=== PATIENT | female | born 1980 ===

== ENCOUNTER 2018-03-05 14:16 | Inpatient (IN) ==
[2018-03-06 08:16] VITALS: BP 125/82
== END 2018-03-06 14:07 | disposition home or self-care (01) | DRG 639 ==
LOC: N.ICU 16:10 → SUATTDRO 16:10
PROVIDERS: ADMIT Internal Medicine; ATTEND Internal Medicine

== ENCOUNTER 2019-03-27 16:38 | Inpatient (IN) ==
[2019-03-27] MEDS ORDERED: ONDANSETRON 4 MG/2 ML VIAL IV PRN (18:46)
[2019-03-27] MEDS ORDERED: DEXTROSE 50% 25 GM/50 ML VIAL IV PRN ×2 (18:46)
[2019-03-27] MEDS ORDERED: GLUCAGON 1 MG VIAL IM PRN (18:46)
[2019-03-27] MEDS ORDERED: ACETAMINOPHEN 325 MG TABLET PO PRN (18:46)
[2019-03-27] MEDS ORDERED: ENOXAPARIN 80 MG/0.8 ML SYRINGE SUBCUT ONE (19:25)
[2019-03-27 19:53] LABS: Basophils % 0.2 % (0.0-0.8); Eosinophils # 0.1 10*3/uL (0.0-0.87); Eosinophils % 1.7 % (0.00-10.9); Hematocrit 26.7 VOL% (35.7-47.0); Hemoglobin 8.9 GM/DL (12.0-16.0); Immature Granulocytes % 0.6 %; Immature Granulocytes Absolute 0.05 #; Lymphocytes % 12.5 % (21.3-54.2); Mean Corpuscular HGB Conc 33.3 GM/DL (32-36); Mean Corpuscular Volume 90.8 FL (87-102); Mean Platelet Volume 9.5 FL (9.6-12.0); Monocytes % 11.8 % (1.7-12.7); Neutrophils % 73.2 % (38.7-73.9); Platelet Count 184 T/CUMM (130-400); Red Blood Count 2.94 MC/CUMM (3.8-5.5); Red Cell Distribution Width 13.1 % (9.3-17.3); White Blood Count 8.2 T/CUMM (4-12)
[2019-03-27 20:07] LABS: Alanine Aminotransferase 9 U/L (13-56); Albumin 2.6 G/DL (3.4-5.0); Alkaline Phosphatase 108 U/L (45-117); Aspartate Amino Transferase 11 U/L (0-37); Bilirubin,Total < 0.39 MG/DL (0.2-1.0); Blood Urea Nitrogen 43 MG/DL (7-18); Calcium 8.4 MG/DL (8.5-10.1); Glucose 126 MG/DL (74-106); Osmolality,Calculated 278.4 MOS/KG (273-304); Total Protein 7.1 G/DL (6.4-8.3)
[2019-03-27 20:15] LABS: Eosinophils 2 % (0-10); Hypochromasia 1+; Lymphocytes 10 % (20-55); Platelet Estimate Adequate; Segmented Neutrophils 78 % (50-85)
[2019-03-27 20:16] LABS: Total Cells Counted 100
[2019-03-27] MEDS: SODIUM CHLORIDE 0.9% 1,000 ML IV SCH (20:20)
[2019-03-27] MEDS ORDERED: SODIUM CHLORIDE 0.9% 500 ML IV ONE (20:54)
[2019-03-27] MEDS: CEFTAROLINE 400 MG in SODIUM CHLORIDE 0.9% 100 ML IV SCH (20:57)
[2019-03-27] MEDS: INSULIN REGULAR 100 UNIT/ML SUBCUT SCH (20:57)
[2019-03-28] MEDS: SODIUM CHLORIDE 0.9% 1,000 ML IV SCH ×4 (01:24→18:20)
[2019-03-28] MEDS ORDERED: SODIUM CHLORIDE 0.9% 500 ML IV ONE (06:11)
[2019-03-28 07:13] LABS: Basophils % 0.3 % (0.0-0.8); Eosinophils # 0.1 10*3/uL (0.0-0.87); Eosinophils % 1.6 % (0.00-10.9); Hematocrit 24.2 VOL% (35.7-47.0); Hemoglobin 8.2 GM/DL (12.0-16.0); Immature Granulocytes % 0.6 %; Immature Granulocytes Absolute 0.04 #; Lymphocytes % 14.9 % (21.3-54.2); Mean Corpuscular HGB Conc 33.9 GM/DL (32-36); Mean Corpuscular Volume 90.6 FL (87-102); Mean Platelet Volume 9.8 FL (9.6-12.0); Monocytes % 12.1 % (1.7-12.7); Neutrophils % 70.5 % (38.7-73.9); Platelet Count 148 T/CUMM (130-400); Red Blood Count 2.67 MC/CUMM (3.8-5.5); White Blood Count 6.9 T/CUMM (4-12)
[2019-03-28 07:32] LABS: Albumin 2.1 G/DL (3.4-5.0); Band Neutrophils 2 % (0-10); Bilirubin,Total 0.9 MG/DL (0.2-1.0); Calcium 7.7 MG/DL (8.5-10.1); Eosinophils 3 % (0-10); Lymphocytes 6 % (20-55); Osmolality,Calculated 288.2 MOS/KG (273-304); Segmented Neutrophils 78 % (50-85); Total Cells Counted 100
[2019-03-28 07:33] LABS: Hypochromasia 1+; Platelet Estimate Normal
[2019-03-28] MEDS ORDERED: ceFAZolin 1,000 MG in SYRINGE 1 EACH IV ONE (07:33)
[2019-03-28] MEDS: CEFTAROLINE 400 MG in SODIUM CHLORIDE 0.9% 100 ML IV SCH ×2 (08:38→21:16)
[2019-03-28] MEDS: INSULIN REGULAR 100 UNIT/ML SUBCUT SCH ×4 (08:42→21:17)
[2019-03-28] MEDS ORDERED: LIDOCAINE 1% 20 ML VIAL ONE (10:07)
[2019-03-28] MEDS ORDERED: BUPIVACAINE MPF 0.25% /EPI 30 ML VIAL ONE (10:07)
[2019-03-28] MEDS ORDERED: HYDROmorphone 2 MG/1 ML VIAL IV ONE (10:32)
[2019-03-28] MEDS ORDERED: HYDROmorphone 2 MG/1 ML VIAL IV PRN (10:32)
[2019-03-28] MEDS ORDERED: HYDROmorphone 2 MG/1 ML VIAL ONE (10:55)
[2019-03-28] MEDS ORDERED: HydrOXYzine PAMOATE 25 MG CAPSULE PO PRN (13:07)
[2019-03-28] MEDS: PANTOPRAZOLE 40 MG TABLET PO SCH (13:30)
[2019-03-28] MEDS: INSULIN LISPRO 100 UNIT/ML SUBCUT SCH (18:15)
[2019-03-28] MEDS: INSULIN GLARGINE 100 UNIT/ML SUBCUT SCH (21:17)
[2019-03-28] MEDS: MOMETASONE 220 MCG/PUFF INHALER 14 DOSE INH SCH (21:17)
[2019-03-29] MEDS: SODIUM CHLORIDE 0.9% 1,000 ML IV SCH ×5 (01:22→20:05)
[2019-03-29 04:24] LABS: Basophils % 0.2 % (0.0-0.8); Eosinophils # 0.1 10*3/uL (0.0-0.87); Eosinophils % 2.7 % (0.00-10.9); Hematocrit 24.9 VOL% (35.7-47.0); Hemoglobin 8.3 GM/DL (12.0-16.0); Immature Granulocytes % 0.6 %; Immature Granulocytes Absolute 0.03 #; Lymphocytes % 19.5 % (21.3-54.2); Mean Corpuscular HGB Conc 33.3 GM/DL (32-36); Mean Corpuscular Volume 90.2 FL (87-102); Mean Platelet Volume 9.6 FL (9.6-12.0); Monocytes % 8.6 % (1.7-12.7); Neutrophils % 68.4 % (38.7-73.9); Platelet Count 159 T/CUMM (130-400); Red Blood Count 2.76 MC/CUMM (3.8-5.5); Red Cell Distribution Width 12.7 % (9.3-17.3); White Blood Count 4.9 T/CUMM (4-12)
[2019-03-29 04:47] LABS: Calcium 7.5 MG/DL (8.5-10.1); Osmolality,Calculated 283.7 MOS/KG (273-304)
[2019-03-29] MEDS: LEVOTHYROXINE 75 MCG TABLET PO SCH (06:43)
[2019-03-29] MEDS: INSULIN LISPRO 100 UNIT/ML SUBCUT SCH ×3 (08:15→17:27)
[2019-03-29] MEDS: INSULIN REGULAR 100 UNIT/ML SUBCUT SCH ×4 (08:15→21:54)
[2019-03-29] MEDS: MULTIVITAMIN (CENTRUM) TABLET PO SCH (08:16)
[2019-03-29] MEDS: MONTELUKAST 10 MG TABLET PO SCH (09:51)
[2019-03-29] MEDS: LISINOPRIL 20 MG TABLET PO SCH (09:51)
[2019-03-29] MEDS: SIMVASTATIN 20 MG TABLET PO SCH (09:51)
[2019-03-29] MEDS: PANTOPRAZOLE 40 MG TABLET PO SCH (09:51)
[2019-03-29] MEDS: MOMETASONE 220 MCG/PUFF INHALER 14 DOSE INH SCH ×2 (09:51→21:57)
[2019-03-29] MEDS: ASPIRIN EC 81 MG TABLET PO SCH (09:51)
[2019-03-29] MEDS: OMEGA 3 ACID ETHYL ESTERS 1 GM CAPSULE PO SCH (09:51)
[2019-03-29] MEDS: ceFAZolin 1,000 MG in SYRINGE 1 EACH IV SCH ×2 (10:33→17:28)
[2019-03-29] MEDS: CEFTAROLINE 400 MG in SODIUM CHLORIDE 0.9% 100 ML IV SCH (10:33)
[2019-03-29] MEDS: INSULIN GLARGINE 100 UNIT/ML SUBCUT SCH (21:54)
[2019-03-30] MEDS: SODIUM CHLORIDE 0.9% 1,000 ML IV SCH ×4 (02:25→21:11)
[2019-03-30] MEDS: ceFAZolin 1,000 MG in SYRINGE 1 EACH IV SCH ×3 (03:58→21:13)
[2019-03-30] MEDS: LEVOTHYROXINE 75 MCG TABLET PO SCH (06:38)
[2019-03-30] MEDS: SIMVASTATIN 20 MG TABLET PO SCH (08:50)
[2019-03-30] MEDS: MONTELUKAST 10 MG TABLET PO SCH (08:50)
[2019-03-30] MEDS: PANTOPRAZOLE 40 MG TABLET PO SCH (08:50)
[2019-03-30] MEDS: ASPIRIN EC 81 MG TABLET PO SCH (08:50)
[2019-03-30] MEDS: OMEGA 3 ACID ETHYL ESTERS 1 GM CAPSULE PO SCH (08:50)
[2019-03-30] MEDS: MULTIVITAMIN (CENTRUM) TABLET PO SCH (08:51)
[2019-03-30] MEDS: LISINOPRIL 20 MG TABLET PO SCH (08:51)
[2019-03-30] MEDS: MOMETASONE 220 MCG/PUFF INHALER 14 DOSE INH SCH ×2 (08:51→21:13)
[2019-03-30] MEDS: INSULIN LISPRO 100 UNIT/ML SUBCUT SCH ×3 (08:52→17:33)
[2019-03-30] MEDS: INSULIN REGULAR 100 UNIT/ML SUBCUT SCH ×4 (08:53→21:21)
[2019-03-30] MEDS: INSULIN GLARGINE 100 UNIT/ML SUBCUT SCH (21:21)
[2019-03-31] MEDS: SODIUM CHLORIDE 0.9% 1,000 ML IV SCH ×2 (04:28→12:00)
[2019-03-31] MEDS: ceFAZolin 1,000 MG in SYRINGE 1 EACH IV SCH ×2 (04:28→12:00)
[2019-03-31 06:09] LABS: Calcium 7.3 MG/DL (8.5-10.1); Eosinophils # 0.1 10*3/uL (0.0-0.87); Eosinophils % 4.2 % (0.00-10.9); Hematocrit 22.6 VOL% (35.7-47.0); Hemoglobin 7.4 GM/DL (12.0-16.0); Immature Granulocytes % 0.6 %; Immature Granulocytes Absolute 0.02 #; Lymphocytes # 1.4 10*3/uL (1.4-4.0); Mean Corpuscular HGB Conc 32.7 GM/DL (32-36); Mean Corpuscular Volume 91.5 FL (87-102); Mean Platelet Volume 9.3 FL (9.6-12.0); Monocytes % 9.3 % (1.7-12.7); Neutrophils % 44.9 % (38.7-73.9); Osmolality,Calculated 289.7 MOS/KG (273-304); Platelet Count 182 T/CUMM (130-400); Red Blood Count 2.47 MC/CUMM (3.8-5.5); Red Cell Distribution Width 12.5 % (9.3-17.3); White Blood Count 3.3 T/CUMM (4-12)
[2019-03-31] MEDS: LEVOTHYROXINE 75 MCG TABLET PO SCH (06:10)
[2019-03-31] MEDS: MOMETASONE 220 MCG/PUFF INHALER 14 DOSE INH SCH (09:15)
[2019-03-31] MEDS: ASPIRIN EC 81 MG TABLET PO SCH (09:16)
[2019-03-31] MEDS: OMEGA 3 ACID ETHYL ESTERS 1 GM CAPSULE PO SCH (09:16)
[2019-03-31] MEDS: MONTELUKAST 10 MG TABLET PO SCH (09:16)
[2019-03-31] MEDS: LISINOPRIL 20 MG TABLET PO SCH (09:16)
[2019-03-31] MEDS: SIMVASTATIN 20 MG TABLET PO SCH (09:17)
[2019-03-31] MEDS: PANTOPRAZOLE 40 MG TABLET PO SCH (09:17)
[2019-03-31] MEDS: INSULIN REGULAR 100 UNIT/ML SUBCUT SCH ×2 (09:17→11:30)
[2019-03-31] MEDS: MULTIVITAMIN (CENTRUM) TABLET PO SCH (09:17)
[2019-03-31] MEDS: INSULIN LISPRO 100 UNIT/ML SUBCUT SCH ×2 (09:18→11:30)
[2019-03-31 11:22] VITALS: BP 125/76
[2019-04-04] MEDS ORDERED: ERGOCALCIFEROL 50,000 UNIT CAPSULE PO SCH (09:00)
== END 2019-03-31 12:25 | disposition home or self-care (01) | DRG 872 ==
LOC: N.TELES → SUATTDRO 18:22 → N.CC 20:01 → N.3E 03-29 05:44
PROVIDERS: ADMIT Internal Medicine; ATTEND Internal Medicine

== ENCOUNTER 2021-01-07 21:43 | Inpatient (IN) ==
[2021-01-07] MEDS ORDERED: PIPERACILLIN/TAZOBACTAM 3,375 MG in SODIUM CHLORIDE 0.9% 100 ML IV STA (22:19)
[2021-01-07] MEDS ORDERED: ACETAMINOPHEN 500 MG TABLET PO STA (22:19)
[2021-01-07 23:21] LABS: Basophils % 0.2 % (0.0-0.8); Hematocrit 27.8 VOL% (35.7-47.0); Hemoglobin 9.5 GM/DL (12.0-16.0); Immature Granulocytes % 0.8 %; Lymphocytes # 1.2 10*3/uL (1.4-4.0); Lymphocytes % 9.5 % (21.3-54.2); Mean Corpuscular HGB Conc 34.2 GM/DL (32-36); Mean Corpuscular Volume 90.8 FL (87-102); Mean Platelet Volume 9.8 FL (9.6-12.0); Monocytes % 7.2 % (1.7-12.7); Neutrophils % 82.3 % (38.7-73.9); Platelet Count 163 T/CUMM (130-400); Red Blood Count 3.06 MC/CUMM (3.8-5.5); Red Cell Distribution Width 13.2 % (9.3-17.3); White Blood Count 12.1 T/CUMM (4-12)
[2021-01-07 23:32] LABS: PT Patient Result 11.3 SECS (10.5-12.0)
[2021-01-08 00:03] LABS: Albumin 2.7 G/DL (3.4-5.0); Bilirubin,Total 0.5 MG/DL (0.2-1.0); Calcium 8.3 MG/DL (8.5-10.1); Potassium 3.5 MMOL/L (3.5-5.1)
[2021-01-08 00:47] LABS: Lymphocytes 10 % (20-55); Microcytosis 1+; Platelet Estimate Normal; Polychromasia Slight; Segmented Neutrophils 85 % (50-85); Total Cells Counted 100
[2021-01-08 00:48] LABS: Stomatocytes Few
[2021-01-08 00:52] LABS: Bilirubin,Urine Negative (Negative); Blood, Urine Small mg/dL (Negative); Glucose,Urine (UA) >=500 mg/dL (Negative); Ketones,Urine 20 mg/dL (Negative); Mucus,Urine Occasional /LPF (Occasional); Nitrite,Urine Negative (Negative); Protein,Urine 30 MG/DL; RBC,Urine <1 /HPF (0-4); Squamous Epithelial Cell,Urine Occasional /HPF (0-10); Urine Appearance CLEAR (Clear); Urine Color Yellow (Yellow); Urine Specific Gravity 1.023 (1.001-1.035); Urine Urobilinogen < 2.0 EU/DL (0.2-1.0)
[2021-01-08] MEDS ORDERED: SODIUM CHLORIDE 0.9% 1,000 ML IV STA (01:29)
[2021-01-08] MEDS ORDERED: NICOTINE 21 MG/24 HR PATCH TRANSDERM PRN (05:03)
[2021-01-08] MEDS ORDERED: ONDANSETRON 4 MG/2 ML VIAL IV PRN (05:03)
[2021-01-08] MEDS ORDERED: DEXTROSE 50% 25 GM/50 ML VIAL IV PRN (05:03)
[2021-01-08] MEDS ORDERED: GLUCAGON 1 MG VIAL IM PRN (05:03)
[2021-01-08] MEDS ORDERED: VANCOMYCIN INJ 1,000 MG in SODIUM CHLORIDE 0.9% 250 ML IV SCH (05:30)
[2021-01-08] MEDS: INSULIN REGULAR 100 UNIT/ML SUBCUT SCH ×4 (07:49→21:28)
[2021-01-08] MEDS: HEPARIN 5,000 UNIT/1 ML VIAL SUBCUT SCH ×3 (09:40→23:46)
[2021-01-08] MEDS: VANCOMYCIN INJ 1,250 MG in SODIUM CHLORIDE 0.9% 250 ML IV SCH ×2 (09:40→21:27)
[2021-01-08] MEDS: MORPHINE 4 MG/1 ML VIAL IV PRN ×2 (12:55→17:09)
[2021-01-08] MEDS: PIPERACILLIN/TAZOBACTAM 3,375 MG in SODIUM CHLORIDE 0.9% 100 ML IV SCH ×3 (14:18→23:46)
[2021-01-08] MEDS: SODIUM CHLORIDE 0.9% 1,000 ML IV SCH ×3 (14:19→23:45)
[2021-01-08] MEDS: ACETAMINOPHEN 325 MG TABLET PO PRN (21:31)
[2021-01-09] MEDS: MORPHINE 4 MG/1 ML VIAL IV PRN ×2 (02:24→07:15)
[2021-01-09 05:25] LABS: Basophils % 0.1 % (0.0-0.8); Eosinophils # 0.1 10*3/uL (0.0-0.87); Eosinophils % 0.8 % (0.00-10.9); Hematocrit 24.6 VOL% (35.7-47.0); Hemoglobin 8.1 GM/DL (12.0-16.0); Immature Granulocytes % 0.6 %; Immature Granulocytes Absolute 0.05 #; Lymphocytes # 1.1 10*3/uL (1.4-4.0); Lymphocytes % 14.5 % (21.3-54.2); Mean Corpuscular HGB Conc 32.9 GM/DL (32-36); Mean Corpuscular Volume 92.5 FL (87-102); Mean Platelet Volume 9.6 FL (9.6-12.0); Monocytes % 5.8 % (1.7-12.7); Neutrophils % 78.2 % (38.7-73.9); Platelet Count 126 T/CUMM (130-400); Red Blood Count 2.66 MC/CUMM (3.8-5.5); Red Cell Distribution Width 13.2 % (9.3-17.3); White Blood Count 7.8 T/CUMM (4-12)
[2021-01-09 05:50] LABS: Calcium 7.9 MG/DL (8.5-10.1); Osmolality,Calculated 274.1 MOS/KG (273-304); Potassium 3.4 MMOL/L (3.5-5.1)
[2021-01-09 05:57] LABS: Eosinophils 1 % (0-10); Hypochromasia 1+; Lymphocytes 15 % (20-55); Microcytosis 1+; Platelet Estimate Normal; Segmented Neutrophils 79 % (50-85); Total Cells Counted 100
[2021-01-09] MEDS: PIPERACILLIN/TAZOBACTAM 3,375 MG in SODIUM CHLORIDE 0.9% 100 ML IV SCH ×3 (06:50→23:32)
[2021-01-09] MEDS: HEPARIN 5,000 UNIT/1 ML VIAL SUBCUT SCH (06:51)
[2021-01-09] MEDS: SODIUM CHLORIDE 0.9% 1,000 ML IV SCH ×3 (07:22→22:07)
[2021-01-09] MEDS: INSULIN REGULAR 100 UNIT/ML SUBCUT SCH ×2 (08:35→13:50)
[2021-01-09] MEDS ORDERED: POTASSIUM CHLORIDE 20 MEQ TABLET PO ONE (09:00)
[2021-01-09] MEDS ORDERED: MECLIZINE 25 MG TABLET PO PRN (10:41)
[2021-01-09] MEDS: SUCRALFATE 1 GM TABLET PO SCH ×3 (12:26→21:14)
[2021-01-09] MEDS: VANCOMYCIN INJ 1,250 MG in SODIUM CHLORIDE 0.9% 250 ML IV SCH (12:26)
[2021-01-09] MEDS: GABAPENTIN 100 MG CAPSULE PO SCH ×2 (15:03→21:14)
[2021-01-09] MEDS: INSULIN LISPRO 100 UNIT/ML SUBCUT SCH ×3 (17:18→21:15)
[2021-01-10] MEDS: VANCOMYCIN INJ 1,250 MG in SODIUM CHLORIDE 0.9% 250 ML IV SCH ×2 (03:33→15:03)
[2021-01-10 05:10] LABS: Eosinophils % 0.3 % (0.00-10.9); Hematocrit 22.1 VOL% (35.7-47.0); Hemoglobin 7.4 GM/DL (12.0-16.0); Immature Granulocytes % 0.7 %; Immature Granulocytes Absolute 0.04 #; Lymphocytes # 0.9 10*3/uL (1.4-4.0); Lymphocytes % 14.3 % (21.3-54.2); Mean Corpuscular HGB Conc 33.5 GM/DL (32-36); Mean Corpuscular Volume 91.7 FL (87-102); Mean Platelet Volume 9.7 FL (9.6-12.0); Monocytes % 6.5 % (1.7-12.7); Neutrophils % 78.2 % (38.7-73.9); Platelet Count 147 T/CUMM (130-400); Red Blood Count 2.41 MC/CUMM (3.8-5.5); Red Cell Distribution Width 13.2 % (9.3-17.3); White Blood Count 6.2 T/CUMM (4-12)
[2021-01-10 05:34] LABS: Hypochromasia 1+; Lymphocytes 16 % (20-55); Microcytosis 1+; Platelet Estimate Adequate; Segmented Neutrophils 80 % (50-85); Total Cells Counted 100
[2021-01-10 06:01] LABS: Folate 15.32 NG/ML (5.38-24.0); Vitamin B12 180 PG/ML (211-911)
[2021-01-10 06:07] LABS: Calcium 7.7 MG/DL (8.5-10.1); Osmolality,Calculated 279.8 MOS/KG (273-304); Potassium 3.9 MMOL/L (3.5-5.1)
[2021-01-10] MEDS: LEVOTHYROXINE 75 MCG TABLET PO SCH (06:07)
[2021-01-10] MEDS: PANTOPRAZOLE 40 MG TABLET PO SCH (06:07)
[2021-01-10] MEDS: PIPERACILLIN/TAZOBACTAM 3,375 MG in SODIUM CHLORIDE 0.9% 100 ML IV SCH ×3 (06:07→20:00)
[2021-01-10 06:22] LABS: Sedimentation Rate-Westergren 128 MM/HR (0-20)
[2021-01-10 08:24] LABS: % Iron Saturation 20.1 % (18-50)
[2021-01-10] MEDS: INSULIN LISPRO 100 UNIT/ML SUBCUT SCH ×5 (08:49→21:30)
[2021-01-10] MEDS: INSULIN GLARGINE 100 UNIT/ML SUBCUT SCH (08:49)
[2021-01-10] MEDS: ASPIRIN EC 325 MG TABLET PO SCH (08:50)
[2021-01-10] MEDS: SUCRALFATE 1 GM TABLET PO SCH ×4 (08:50→20:00)
[2021-01-10] MEDS: GABAPENTIN 100 MG CAPSULE PO SCH ×3 (08:50→20:00)
[2021-01-10] MEDS: SODIUM CHLORIDE 0.9% 1,000 ML IV SCH (09:08)
[2021-01-10 09:49] LABS: Hemoglobin A1 (Alkaline) 97.7 % (96.5-98.5); Hemoglobin A2 (Alkaline) 2.3 % (1.5-3.5)
[2021-01-10] MEDS ORDERED: CYCLOBENZAPRINE 10 MG TABLET PO PRN (09:57)
[2021-01-10] MEDS ORDERED: SODIUM CHLORIDE 0.9% 1,000 ML IV PRN (12:24)
[2021-01-10 14:01] LABS: Myeloperoxidase Antibody < 0.2 U
[2021-01-10] MEDS: FERROUS SULFATE 325 MG TABLET PO SCH (16:34)
[2021-01-10] MEDS: ACETAMINOPHEN 325 MG TABLET PO PRN (19:59)
[2021-01-11] MEDS: VANCOMYCIN INJ 1,250 MG in SODIUM CHLORIDE 0.9% 250 ML IV SCH ×2 (03:15→15:28)
[2021-01-11 05:21] LABS: Basophils % 0.3 % (0.0-0.8); Eosinophils # 0.1 10*3/uL (0.0-0.87); Hematocrit 30.6 VOL% (35.7-47.0); Immature Granulocytes % 1.2 %; Immature Granulocytes Absolute 0.07 #; Lymphocytes # 0.9 10*3/uL (1.4-4.0); Lymphocytes % 15.5 % (21.3-54.2); Mean Corpuscular Volume 90.3 FL (87-102); Mean Platelet Volume 9.2 FL (9.6-12.0); Monocytes % 6.6 % (1.7-12.7); Neutrophils % 75.4 % (38.7-73.9); Platelet Count 154 T/CUMM (130-400); Red Cell Distribution Width 14.6 % (9.3-17.3); White Blood Count 5.9 T/CUMM (4-12)
[2021-01-11 05:27] LABS: Hemoglobin 10.4 GM/DL (12.0-16.0); Red Blood Count 3.39 MC/CUMM (3.8-5.5)
[2021-01-11 05:41] LABS: Alanine Aminotransferase < 9 U/L (13-56); Albumin 1.8 G/DL (3.4-5.0); Alkaline Phosphatase 110 U/L (45-117); Aspartate Amino Transferase 15 U/L (0-37); Blood Urea Nitrogen 11 MG/DL (7-18); Carbon Dioxide 24 MMOL/L (21-32); Estimated Glom Filtration Rate 138 ML/MIN; Glucose 255 MG/DL (74-106); Potassium 3.9 MMOL/L (3.5-5.1); Sodium 136 MMOL/L (136-145); Total Protein 5.9 G/DL (6.4-8.2)
[2021-01-11] MEDS: LEVOTHYROXINE 75 MCG TABLET PO SCH (06:10)
[2021-01-11] MEDS: PIPERACILLIN/TAZOBACTAM 3,375 MG in SODIUM CHLORIDE 0.9% 100 ML IV SCH (06:10)
[2021-01-11] MEDS: PANTOPRAZOLE 40 MG TABLET PO SCH (06:10)
[2021-01-11 06:12] LABS: Anisocytosis 1+; Burr Cells Few; Platelet Estimate Normal
[2021-01-11 06:13] LABS: Macrocytosis Slight
[2021-01-11] MEDS ORDERED: LIDOCAINE 2% TOP JELLY 20 ML VIAL INTRAURETH ONE (07:37)
[2021-01-11] MEDS: INSULIN LISPRO 100 UNIT/ML SUBCUT SCH ×5 (08:00→22:01)
[2021-01-11] MEDS: SUCRALFATE 1 GM TABLET PO SCH ×4 (08:00→21:43)
[2021-01-11] MEDS: FERROUS SULFATE 325 MG TABLET PO SCH ×2 (08:00→17:04)
[2021-01-11] MEDS: GABAPENTIN 100 MG CAPSULE PO SCH ×3 (08:00→21:44)
[2021-01-11] MEDS: ASPIRIN EC 325 MG TABLET PO SCH (08:00)
[2021-01-11] MEDS: INSULIN GLARGINE 100 UNIT/ML SUBCUT SCH (08:19)
[2021-01-11] MEDS ORDERED: MAGNESIUM SULF RIDER 2 GM/50 ML PREMIX IV ONE (09:00)
[2021-01-11] MEDS: MORPHINE 4 MG/1 ML VIAL IV PRN (11:11)
[2021-01-11] MEDS: cefTRIAXone 1,000 MG in SODIUM CHLORIDE 0.9% 100 ML IV SCH (14:41)
[2021-01-11] MEDS: ESCITALOPRAM 10 MG TABLET PO SCH (21:44)
[2021-01-12] MEDS: VANCOMYCIN INJ 1,250 MG in SODIUM CHLORIDE 0.9% 250 ML IV SCH ×2 (02:58→14:20)
[2021-01-12] MEDS: LEVOTHYROXINE 75 MCG TABLET PO SCH (05:32)
[2021-01-12] MEDS: PANTOPRAZOLE 40 MG TABLET PO SCH (05:32)
[2021-01-12 05:44] LABS: Basophils % 0.4 % (0.0-0.8); Eosinophils # 0.1 10*3/uL (0.0-0.87); Eosinophils % 2.2 % (0.00-10.9); Hematocrit 31.2 VOL% (35.7-47.0); Hemoglobin 10.3 GM/DL (12.0-16.0); Immature Granulocytes % 1.1 %; Immature Granulocytes Absolute 0.06 #; Lymphocytes % 17.8 % (21.3-54.2); Mean Corpuscular Volume 89.7 FL (87-102); Mean Platelet Volume 9.2 FL (9.6-12.0); Monocytes % 10.5 % (1.7-12.7); Platelet Count 167 T/CUMM (130-400); Red Blood Count 3.48 MC/CUMM (3.8-5.5); Red Cell Distribution Width 14.6 % (9.3-17.3); White Blood Count 5.4 T/CUMM (4-12)
[2021-01-12 06:04] LABS: Albumin 1.7 G/DL (3.4-5.0); Bilirubin,Total 0.5 MG/DL (0.2-1.0); Calcium 8.2 MG/DL (8.5-10.1); Osmolality,Calculated 275.8 MOS/KG (273-304); Potassium 3.2 MMOL/L (3.5-5.1); Total Protein 5.8 G/DL (6.4-8.2)
[2021-01-12 06:10] LABS: Eosinophils 4 % (0-10); Lymphocytes 14 % (20-55); Platelet Estimate Normal; Segmented Neutrophils 77 % (50-85); Total Cells Counted 100
[2021-01-12] MEDS: GABAPENTIN 100 MG CAPSULE PO SCH ×3 (08:55→20:30)
[2021-01-12] MEDS: SUCRALFATE 1 GM TABLET PO SCH ×4 (08:55→20:30)
[2021-01-12] MEDS: INSULIN GLARGINE 100 UNIT/ML SUBCUT SCH (08:56)
[2021-01-12] MEDS: ASPIRIN EC 325 MG TABLET PO SCH (08:56)
[2021-01-12] MEDS: FERROUS SULFATE 325 MG TABLET PO SCH ×2 (08:56→16:30)
[2021-01-12] MEDS: INSULIN LISPRO 100 UNIT/ML SUBCUT SCH ×5 (08:56→20:31)
[2021-01-12] MEDS: cefTRIAXone 1,000 MG in SODIUM CHLORIDE 0.9% 100 ML IV SCH (09:25)
[2021-01-12] MEDS ORDERED: CLORAZEPATE 3.75 MG TABLET PO PRN (09:54)
[2021-01-12 18:49] LABS: Lymphocytes,Synovial Fluid 4 %; Neutrophils,Synovial Fluid 96 %
[2021-01-12] MEDS: ESCITALOPRAM 10 MG TABLET PO SCH (20:30)
[2021-01-13] MEDS: VANCOMYCIN INJ 1,250 MG in SODIUM CHLORIDE 0.9% 250 ML IV SCH ×2 (02:40→15:00)
[2021-01-13 05:23] LABS: Basophils % 0.4 % (0.0-0.8); Eosinophils # 0.1 10*3/uL (0.0-0.87); Eosinophils % 2.5 % (0.00-10.9); Hematocrit 31.8 VOL% (35.7-47.0); Hemoglobin 10.8 GM/DL (12.0-16.0); Immature Granulocytes % 1.1 %; Immature Granulocytes Absolute 0.05 #; Lymphocytes % 21.3 % (21.3-54.2); Mean Corpuscular Volume 88.6 FL (87-102); Mean Platelet Volume 9.1 FL (9.6-12.0); Monocytes % 8.7 % (1.7-12.7); Platelet Count 165 T/CUMM (130-400); Red Blood Count 3.59 MC/CUMM (3.8-5.5); Red Cell Distribution Width 13.9 % (9.3-17.3); White Blood Count 4.5 T/CUMM (4-12)
[2021-01-13 05:42] LABS: Calcium 8.2 MG/DL (8.5-10.1); Osmolality,Calculated 265.1 MOS/KG (273-304); Potassium 3.6 MMOL/L (3.5-5.1); Risk Ratio 5.35
[2021-01-13 06:22] LABS: Sedimentation Rate-Westergren 99 MM/HR (0-20)
[2021-01-13] MEDS: SUCRALFATE 1 GM TABLET PO SCH ×4 (06:40→20:43)
[2021-01-13] MEDS: PANTOPRAZOLE 40 MG TABLET PO SCH (06:40)
[2021-01-13] MEDS: LEVOTHYROXINE 75 MCG TABLET PO SCH (06:40)
[2021-01-13] MEDS: INSULIN LISPRO 100 UNIT/ML SUBCUT SCH ×5 (07:16→20:09)
[2021-01-13] MEDS: INSULIN GLARGINE 100 UNIT/ML SUBCUT SCH (08:26)
[2021-01-13] MEDS: FERROUS SULFATE 325 MG TABLET PO SCH ×2 (08:26→16:12)
[2021-01-13] MEDS: GABAPENTIN 100 MG CAPSULE PO SCH ×3 (08:26→20:43)
[2021-01-13] MEDS: ASPIRIN EC 325 MG TABLET PO SCH (08:26)
[2021-01-13] MEDS: cefTRIAXone 1,000 MG in SODIUM CHLORIDE 0.9% 100 ML IV SCH (08:26)
[2021-01-13] MEDS: ESCITALOPRAM 10 MG TABLET PO SCH (20:43)
[2021-01-14 02:11] LABS: Basophils % 0.2 % (0.0-0.8); Eosinophils # 0.1 10*3/uL (0.0-0.87); Eosinophils % 2.4 % (0.00-10.9); Hematocrit 30.2 VOL% (35.7-47.0); Hemoglobin 9.8 GM/DL (12.0-16.0); Immature Granulocytes % 0.5 %; Immature Granulocytes Absolute 0.02 #; Lymphocytes % 23.5 % (21.3-54.2); Mean Corpuscular HGB Conc 32.5 GM/DL (32-36); Mean Corpuscular Volume 91.2 FL (87-102); Mean Platelet Volume 8.8 FL (9.6-12.0); Monocytes % 8.6 % (1.7-12.7); Neutrophils % 64.8 % (38.7-73.9); Platelet Count 166 T/CUMM (130-400); Red Blood Count 3.31 MC/CUMM (3.8-5.5); Red Cell Distribution Width 13.9 % (9.3-17.3); White Blood Count 4.1 T/CUMM (4-12)
[2021-01-14] MEDS: VANCOMYCIN INJ 1,250 MG in SODIUM CHLORIDE 0.9% 250 ML IV SCH (02:17)
[2021-01-14 02:27] LABS: Calcium 7.8 MG/DL (8.5-10.1); Osmolality,Calculated 270.4 MOS/KG (273-304); Potassium 3.7 MMOL/L (3.5-5.1)
[2021-01-14 02:34] LABS: Eosinophils 3 % (0-10); Hypochromasia Slight; Lymphocytes 18 % (20-55); Platelet Estimate Normal; Segmented Neutrophils 71 % (50-85); Total Cells Counted 100
[2021-01-14] MEDS: PANTOPRAZOLE 40 MG TABLET PO SCH (06:06)
[2021-01-14] MEDS: LEVOTHYROXINE 75 MCG TABLET PO SCH (06:06)
[2021-01-14] MEDS ORDERED: MAGNESIUM SULF RIDER 2 GM/50 ML PREMIX IV ONE (09:00)
[2021-01-14] MEDS: cefTRIAXone 1,000 MG in SODIUM CHLORIDE 0.9% 100 ML IV SCH (09:12)
[2021-01-14] MEDS: GABAPENTIN 100 MG CAPSULE PO SCH ×3 (09:13→21:28)
[2021-01-14] MEDS: FERROUS SULFATE 325 MG TABLET PO SCH ×2 (09:13→16:15)
[2021-01-14] MEDS: ASPIRIN EC 325 MG TABLET PO SCH (09:13)
[2021-01-14] MEDS: SUCRALFATE 1 GM TABLET PO SCH ×4 (09:13→21:28)
[2021-01-14] MEDS: INSULIN LISPRO 100 UNIT/ML SUBCUT SCH ×5 (09:13→22:10)
[2021-01-14] MEDS: INSULIN GLARGINE 100 UNIT/ML SUBCUT SCH (09:28)
[2021-01-14] MEDS ORDERED: VANCOMYCIN INJ 1,250 MG in SODIUM CHLORIDE 0.9% 250 ML IV SCH (21:00)
[2021-01-14] MEDS: ESCITALOPRAM 10 MG TABLET PO SCH (21:28)
[2021-01-15 05:34] LABS: Basophils % 0.2 % (0.0-0.8); Eosinophils # 0.1 10*3/uL (0.0-0.87); Eosinophils % 1.9 % (0.00-10.9); Hematocrit 30.1 VOL% (35.7-47.0); Hemoglobin 10.1 GM/DL (12.0-16.0); Immature Granulocytes % 0.5 %; Immature Granulocytes Absolute 0.02 #; Lymphocytes # 1.1 10*3/uL (1.4-4.0); Lymphocytes % 26.3 % (21.3-54.2); Mean Corpuscular HGB Conc 33.6 GM/DL (32-36); Mean Corpuscular Volume 89.6 FL (87-102); Mean Platelet Volume 8.6 FL (9.6-12.0); Monocytes % 8.4 % (1.7-12.7); Neutrophils % 62.7 % (38.7-73.9); Platelet Count 163 T/CUMM (130-400); Red Blood Count 3.36 MC/CUMM (3.8-5.5); Red Cell Distribution Width 13.9 % (9.3-17.3); White Blood Count 4.2 T/CUMM (4-12)
[2021-01-15] MEDS: LEVOTHYROXINE 75 MCG TABLET PO SCH (05:43)
[2021-01-15] MEDS: PANTOPRAZOLE 40 MG TABLET PO SCH (05:43)
[2021-01-15 05:47] LABS: Calcium 8.1 MG/DL (8.5-10.1); Osmolality,Calculated 272.8 MOS/KG (273-304); Potassium 3.4 MMOL/L (3.5-5.1)
[2021-01-15 05:55] LABS: Hypochromasia 1+; Microcytosis 1+; Platelet Estimate Adequate
[2021-01-15] MEDS: INSULIN LISPRO 100 UNIT/ML SUBCUT SCH ×2 (08:07→12:46)
[2021-01-15] MEDS: FERROUS SULFATE 325 MG TABLET PO SCH (08:50)
[2021-01-15] MEDS: ASPIRIN EC 325 MG TABLET PO SCH (08:50)
[2021-01-15] MEDS: SUCRALFATE 1 GM TABLET PO SCH ×2 (08:50→12:46)
[2021-01-15] MEDS: INSULIN GLARGINE 100 UNIT/ML SUBCUT SCH (08:50)
[2021-01-15] MEDS: GABAPENTIN 100 MG CAPSULE PO SCH (08:50)
[2021-01-15] MEDS ORDERED: POTASSIUM CHLORIDE 20 MEQ TABLET PO ONE (09:00)
[2021-01-15 11:43] VITALS: BP 137/84
[2021-01-15] MEDS ORDERED: MELOXICAM 7.5 MG TABLET PO SCH (12:00)
[2021-01-16 12:15] LABS: Anti-Nuclear Antibody Pattern Speckled
[2021-01-16 12:27] LABS: Double Stranded DNA Antibodies < 25.0 IU/ML
[2021-01-17 13:13] LABS: Anti SS-A Antibodies < 16 EU/ML
== END 2021-01-15 15:00 | disposition home or self-care (01) | DRG 351 ==
LOC: EDUNIT# → EDBD → N.EDINP 21:43 → N.ED 21:43 → N.2E 01-08 12:24 → N.5E 01-08 15:50 → SUATTDRO 01-10 13:20
PROVIDERS: ADMIT Internal Medicine; ATTEND Internal Medicine